=== PATIENT | female | born 1995 | race Caucasian/White ===

== ENCOUNTER 2020-12-22 11:40 | Emergency (ER) | payer BC ==
[~2020-12-22] VITALS: Ht 162.6 cm; Wt 58.3 kg
[2020-12-22 12:00] VITALS: BP 114/80
--- NOTE | 2020-12-22 12:12 | NUR ---
AMBULATED TO ER BED 1
--- NOTE | 2020-12-22 12:33 | NUR ---
25/ PRESENTS TO ED WITH C/O ABDOMINAL PAIN, NAUSEA AND VOMITING X2 WEEKS. PATIENT STATES TWO WEEKS AGO SHE WAS DX WITH MOLAR , STATING SHE HAS HAD INTERMITTENT ABDOMINAL PAIN AND NAUSEA SINCE, AND MULTIPLE EPISODES OF VOMITING DAILY. ABDOMEN IS TENDER TO TOUCH, DENIES CP, SOB, URINARY SYMPTOMS OR VAGINAL BLEEDING.
[2020-12-22] MEDS ORDERED: NACL 0.9% 1,000 ML IV ONE (12:35)
[2020-12-22] MEDS ORDERED: ONDANSETRON 4 MG/2 ML VIAL IVP ONE (12:35)
[2020-12-22 13:45] LABS: BASOPHILS % (AUTO) 0.3 % (0.0-2.0); HEMATOCRIT 36.7 % (36-48); HEMOGLOBIN 12.4 g/dL (12.0-16.0); LYMPHOCYTES # (AUTO) 0.7 K/uL (2.5-16.5); LYMPHOCYTES % (AUTO) 8.3 % (20.5-51.1); MEAN CORPUSCULAR HEMOGLOBIN 29 pg (27-31); MEAN CORPUSCULAR HGB CONC 34 g/dL (33-37); MEAN CORPUSCULAR VOLUME 87.4 fL (80-94); MONOCYTES # (AUTO) 0.5 K/uL (0.8-1.0); MONOCYTES % (AUTO) 5.9 % (1.7-9.3); NEUTROPHILS # (AUTO) 7.6 K/uL (1.8-7.7); NEUTROPHILS % (AUTO) 85.5 % (42.2-75.2); PLATELET COUNT (AUTO) 170 K/uL (140-450); RED CELL DISTRIBUTION WIDTH 13.1 % (11.6-13.7); WHITE BLOOD COUNT (AUTO) 8.9 K/uL (4.8-10.8)
--- NOTE | 2020-12-22 14:04 | NUR ---
PT GIVEN SANDWICH PER REQUEST.
[2020-12-22] MEDS ORDERED: ONDA-24 PO (14:20)
[2020-12-22 14:23] LABS: APPEARANCE,URINE CLEAR (CLEAR); BILIRUBIN,URINE 2+ (NEGATIVE); BLOOD, URINE NEGATIVE (NEGATIVE); COLOR,URINE YELLOW (YELLOW); LEUKOCYTE ESTERASE ,URINE NEGATIVE (NEGATIVE); NITRITE, URINE NEGATIVE (NEGATIVE); UGLUCOSE NEGATIVE (NEGATIVE)
[2020-12-22 14:26] LABS: ALBUMIN 3.6 g/dL (3.4-5.0); ANION GAP 17.3 (8-16); CARBON DIOXIDE 20.6 mmol/L (21-32); CREATININE 0.6 mg/dL (0.6-1.3); POTASSIUM 3.9 mmol/L (3.5-5.1); TOTAL BILIRUBIN 0.3 mg/dL (0.0-1.0)
[2020-12-22 14:55] VITALS: BP 110/64
--- NOTE | 2020-12-22 14:56 | NUR ---
Patient discharged with v/s stable. Written and verbal after care instructions given and explained. Patient alert, oriented and verbalized understanding of instructions. Ambulatory with steady gait. All questions addressed prior to discharge. ID band removed. Patient advised to follow up with PMD. Rx of ONDANSTERON given. Patient educated on indication of medication including possible reaction and side effects. Opportunity to ask questions provided and answered.
== END 2020-12-22 14:58 | disposition home or self-care (01) ==
LOC: MED 11:40
DX: O21.1 Hyperemesis gravidarum with metabolic disturbance (principal); O01.9 Hydatidiform mole, unspecified
CPT/HCPCS: 36415; 80053; 81003; 81025; 85025; 96361; 96374; 99283; J2405; J7030